=== PATIENT | female | born 1980 | race Caucasian/White ===

== ENCOUNTER 2025-05-19 13:43 | Emergency (ER) | payer MEDICAID ==
[~2025-05-19] VITALS: Ht 170.2 cm; Wt 59.0 kg
[2025-05-19 13:47] VITALS: TEMP 98.6
[2025-05-19 14:29] LABS: MEAN PLATELET VOLUME 7.5 FL (7.4-10.4); RED CELL DISTRIBUTION WIDTH 14.9 % (11.5-14.5)
[2025-05-19 14:38] LABS: CREATININE 0.73 MG/DL (0.40-0.90); TOTAL CARBON DIOXIDE 30.0 MMOL/L (24-32); eCRCL 90 ML/MIN; eGFR 86 ML/MIN
--- NOTE | 2025-05-19 15:44 | Physician Documentation ---
History of Present Illness ~ Chief Complaint: Headache Stated Complaint: HEADACHE/NECK PAIN/TIREDNESS Time Seen by MD: 15:24 HPI This is a 44-year-old female with a history of iron deficiency anemia who presents with two weeks of feeling of general fatigue and intermittent headache, patient reports no chest pain or shortness breath. Patient reports that she has a follow up appointment with her primary care provider and had lab work obtained prior to this visit, she was concerned that her iron and hemoglobin was low on lab work so she came to the emergency department. Patient reports no other acute symptoms or concerns including no vomiting, diarrhea, or black or bloody stools. Medication Reconciliation Allergies: Coded Allergies: No Known Allergies (Unverified , 05/19/25) Past Medical History Past Medical History: Anemia Review of Systems ROS As stated above in the HPI, otherwise all systems are reviewed and negative. Physical Exam Vital Signs: Temperature: 98.6, Source: Oral, Heart Rate: 75, Respiratory Rate: 16, BP: 130/58, Pulse Oximetry: 100, Weight: 59.000 Oxygen Flow Rate: 0 Physical Exam VITALS: Reviewed and as above. GENERAL: Alert, nontoxic appearing, no apparent distress. HEENT: PERRLA RESPIRATORY: No increased work of breathing, no respiratory distress, speaking in full clear sentences, clear lung sounds in all rodrigez CV: Regular rate and rhythm no murmur SKIN: Warm and dry NEURO: GCS 15 Progress Results/Orders Results/Orders Completed Orders - GUZMAN GOODE Cbc/Diff (05/19/25 13:51) BMP (05/19/25 13:51) Vital Signs 05/19/25 05/19/25 13:47 15:50 Temp 98.6 Pulse 75 95 Resp 16 18 B/P (MAP) 130/58 97/57 (70) Pulse Ox 100 95 O2 Flow Rate 0 0 Laboratory Tests Test 05/19/25 14:18 White Blood Count 5.9 Red Blood Count 3.59 L Hemoglobin 10.6 L Hematocrit 32.2 L Mean Corpuscular Volume 89.7 Mean Corpuscular Hemoglobin 29.6 Mean Corpuscular Hemoglobin Concent 33.0 Red Cell Distribution Width 14.9 H Platelet Count 231 Mean Platelet Volume 7.5 Neutrophils (%) (Auto) 68.4 Lymphocytes (%) (Auto) 21.3 Monocytes (%) (Auto) 8.2 Eosinophils (%) (Auto) 1.5 Basophils (%) (Auto) 0.6 Neutrophils # (Auto) 4.0 Lymphocytes # (Auto) 1.3 Monocytes # (Auto) 0.5 Eosinophils # (Auto) 0.1 Basophils # (Auto) 0.0 CBC Comment Sodium Level 142 Potassium Level 3.9 Chloride Level 107 Carbon Dioxide Level 30.0 Anion Gap 5 L Blood Urea Nitrogen 14 Creatinine 0.73 Estimated GFR/1.73 m2 86 BUN/Creatinine Ratio 19.2 Glucose Level 92 Calcium Level 8.5 Albumin 3.5 Chemistry Comments Medical Decision Making Additional information obtaine: N/A Findings This 44-year-old female with a history of iron deficiency anemia presented due to two weeks of generalized fatigue and intermittent headaches with a concern for low hemoglobin and iron on recent outpatient lab work. Hemoglobin not to a level to constitute emergency in require admission or blood transfusion, I discussed this with the patient who will follow up with primary care provider as scheduled. This is otherwise well-appearing and hemodynamically stable appropriate for outpatient follow up, patient provided home care instructions return to care precautions, and follow up instructions which she verbalized understanding of. Differential Dx:Considerations: Include: DE LEON-Cluster, DE LEON-Migraine, DE LEON- Hypertensive, DE LEON-Muscular contraction, DE LEON-Post lumbar puncture, CVA, Hemorrhage- Epidural, Hemorrhage-Intracerebral, Hemorrhage-Subarachnoid, Hemorrhage- Subdural, Mass lesion, Other (Anemia, hypotension,) Departure Time of Disposition: 15:42 Disposition: 01 HOME / SELF CARE / HOMELESS Impression: Primary Impression: Anemia Qualified Codes: D64.9 - Anemia, unspecified Condition: Improved Discharge Instructions: Anemia Additional Instructions: Your hemoglobin was somewhat low indicating anemia however it was not to a point to constitute a an emergency or require a blood transfusion, you will require follow up with your primary care provider for further management of your anemia. Please follow up as scheduled with your primary care provider. Referrals: NO PRIMARY CARE PROVIDER (PCP) Education Educated: Patient Educated regarding: diagnosis, treatment, prognosis, need for follow up Signature Scribe Signature: No scribe Attestation: The note accurately reflects work and decisions made by me.SANTO Sung 05/20/25 00:16 GUZMAN GOODE May 19, 2025 15:44
[2025-05-19 15:50] VITALS: BP 97/57; PULSE 95; RESP 18; O2SAT 95
== END 2025-05-19 15:54 | disposition home or self-care (01) ==
LOC: ER 13:44
DX: D64.9 Anemia, unspecified (principal); R51.9 Headache, unspecified; R53.83 Other fatigue
CPT/HCPCS: 36415; 80048; 85025; 99283